=== PATIENT | female | born 1940 | race Caucasian/White ===

== ENCOUNTER 2016-12-12 09:18 | Day surgery (SDC) | payer MEDICARE ==
[~2016-12-12] VITALS: Ht 165.1 cm; Wt 56.6 kg
[~2016-12-12 09:18] MED LIST: 1-ME1LIQ PO; ALEN70TA39 PO; ASPI81 PO; CHOL50006 PO; CLON0.2T PO; COZA50TA PO; ENAL20TA PO; HYDR-2768 PO; METO25 PO; MEVA40TA PO; VITA200T5 PO
[2016-12-12 09:53] VITALS: BP 201/79; PULSE 68; RESP 16; TEMP 97.6; O2SAT 98
[2016-12-12] MEDS ORDERED: DIOV320T PO (09:53)
[2016-12-12] MEDS ORDERED: MINO10TA PO (09:53)
[2016-12-12] MEDS ORDERED: CALC0.25 PO (09:53)
[2016-12-12] MEDS ORDERED: LOVA20TA PO (09:53)
[2016-12-12] MEDS ORDERED: METO50TA11 PO (09:53)
[2016-12-12] MEDS ORDERED: FURO20TA PO (09:53)
[2016-12-12] MEDS ORDERED: CLOP75TA PO (09:53)
[2016-12-12] MEDS ORDERED: SODIUM CHLORIDE 0.9% FLUSH 10 ML FLUSH IV FLUSH PRN (10:15)
[2016-12-12] MEDS ORDERED: SODIUM CHLOR 0.9% 1000 ML INJ 400 ML IV SCH (10:15)
[2016-12-12] MEDS ORDERED: HEPARIN SODIUM - IV 10,000 UNITS/10 ML VIAL ONE (12:17)
[2016-12-12] MEDS ORDERED: MIDAZOLAM HCL 5 MG/ML VIAL (1 ML) ONE (13:03)
[2016-12-12] MEDS ORDERED: IODIXANOL 320 MG/ML 50 ML VIAL (for Cath Lab) I-ARTERIAL ONE (13:30)
[2016-12-12] MEDS ORDERED: SODIUM CHLOR 0.9% 1000 ML INJ 1,000 ML IV SCH (13:42)
[2016-12-12] MEDS ORDERED: LORazepam 2 MG/ML VIAL IV PRN (13:45)
[2016-12-12] MEDS ORDERED: ONDANSETRON HCL 4 MG/2 ML VIAL IV PRN (13:45)
[2016-12-12] MEDS ORDERED: oxyCODONE/ACETAMINOPHEN 5 MG/325 MG TAB PO PRN (13:45)
[2016-12-12] MEDS ORDERED: MISC INFORMATION XX ONE (13:45)
[2016-12-12] MEDS ORDERED: SODIUM CHLOR 0.9% 250 ML INJ 250 ML IV PRN (13:45)
[2016-12-12] MEDS ORDERED: TEMAZEPAM 15 MG CAP PO PRN (13:45)
[2016-12-12] MEDS ORDERED: oxyCODONE/ACETAMINOPHEN 10 MG/325 MG TAB PO PRN (13:45)
[2016-12-12] MEDS ORDERED: ACETAMINOPHEN 325 MG TAB PO PRN (13:45)
[2016-12-12] MEDS ORDERED: LIDOCAINE HCL 1% 50 ML VIAL INFIL PRN (13:45)
[2016-12-12] MEDS ORDERED: MORPHINE SULFATE 4 MG/ML INJ IV PUSH PRN (13:45)
[2016-12-12] MEDS ORDERED: METOCLOPRAMIDE HCL 10 MG/2 ML VIAL IV PRN (13:45)
[2016-12-12] MEDS ORDERED: ATROPINE SULFATE 1 MG/ML VIAL IV PRN (13:45)
[2016-12-12] MEDS ORDERED: BACITRACIN OINT 0.9 GM PKT TOP ONE (14:00)
[2016-12-12] MEDS ORDERED: CLOPIDOGREL 75 MG TAB ONE (14:00)
[2016-12-12] MEDS ORDERED: FUROSEMIDE 20 MG TAB PO SCH (14:19)
[2016-12-12] MEDS ORDERED: MINOXIDIL 10 MG TAB PO SCH (14:21)
[2016-12-12] MEDS ORDERED: METOPROLOL SUCCINATE 50 MG EXTENDED RELEASE TAB PO ONE (14:30)
[2016-12-12] MEDS ORDERED: VALSARTAN 160 MG TAB PO ONE (14:30)
--- NOTE | 2016-12-12 14:30 | MA ---
cc: ARIE CARLIN MD, WING YI DATE: 12/12/2016 CASHIER CLERK Arie Carlin MD, MERGED WITH [facility] REFERRING PHYSICIAN Dr. Wing Faby Ritter PROCEDURE PERFORMED 1. Bilateral renal angiography. 2. Left renal artery stent placement. METHOD Risks, benefits and alternatives were discussed with the patient. The patient understood and consented to the procedure. PROCEDURE The patient was brought to the catheterization lab and placed on the catheterization table. Right groin was prepped and draped in sterile fashion. Right groin was anesthetized with 2% lidocaine. The right common femoral artery was cannulated and a 4-Marshallese 11 cm sheath was placed without difficulty. BILATERAL RENAL ANGIOGRAPHY Bilateral renal arteries was selectively engaged with a 4-Marshallese IM catheter. Angiography findings as follows; 1. Right renal artery is angiographically normal. 2. Left renal artery has a 90% proximal stenosis. PERCUTANEOUS INTERVENTION The left renal artery was selectively engaged with a 6-Marshallese IM catheter, after up-sizing the sheath, 0.014 inch 180 cm [employer] run-through wire was navigated down into the distal renal artery. A 5.0 x 12 mm Herculink Elite stent was then deployed in the left renal artery. Repeat angiography showed good stent placement. No residual stenosis. The wire guide catheter were removed. CONCLUSION 1. Severe left renal artery stenosis. 2. Successful percutaneous intervention with left renal stenting. PLAN The patient will be initiated on Plavix therapy. Hopefully this will translate to improvement in her blood pressure, in addition to renal function. She will follow up Dr. Wing Faby Ritter. A 6-Marshallese Angio-Seal device was closed with good hemostasis after angiography confirmed appropriate anatomy. Hopefully the patient will be able to be discharged later today. Arie Carlin MD SM/TLL /1:43 PM /2:27 PM
[2016-12-12] MEDS ORDERED: hydrALAZINE HCL 20 MG/ML VIAL IV PUSH PRN (15:15)
[2016-12-12] MEDS ORDERED: cloNIDine HCL 0.2 MG TAB PO PRN (15:15)
[2016-12-12] MEDS ORDERED: SODIUM CHLORIDE 0.9% FLUSH 10 ML FLUSH IV FLUSH SCH (21:00)
[2016-12-13] MEDS ORDERED: METOPROLOL SUCCINATE 50 MG EXTENDED RELEASE TAB PO SCH (09:00)
[2016-12-13] MEDS ORDERED: VALSARTAN 160 MG TAB PO SCH (09:00)
== END 2016-12-12 18:31 | disposition home or self-care (01) ==
LOC: HCVO 09:18 → HDIC 09:19 → HDOC 18:31
PROVIDERS: ATTEND Internal Medicine
DX: I70.1 Atherosclerosis of renal artery (principal); I70.0 Atherosclerosis of aorta; I12.9 Hypertensive chronic kidney disease with stage 1 through stage 4 chronic kidney disease, or unspecified chronic kidney disease; N18.4 Chronic kidney disease, stage 4 (severe); E78.5 Hyperlipidemia, unspecified; Z87.891 Personal history of nicotine dependence; Z85.038 Personal history of other malignant neoplasm of large intestine; Z86.73 Personal history of transient ischemic attack (TIA), and cerebral infarction without residual deficits; Z79.02 Long term (current) use of antithrombotics/antiplatelets
CPT/HCPCS: 36252; 37246; 86850; 86900; 86901; C1725; C1769; C1876; C1887; G0269; J1644; J2250; J3010; J7030; Q9967